=== PATIENT | female | born 1990 | race Caucasian/White ===

== ENCOUNTER 2018-11-25 10:34 | Emergency (ER) | payer SELFPAY ==
[~2018-11-25] VITALS: Ht 149.9 cm; Wt 39.5 kg
[2018-11-25 10:37] VITALS: BP 115/68
--- NOTE | 2018-11-25 10:45 | NUR ---
LESLEY MCARTHUR 89 Back Pain/Psych "Bystander called she was sleeping in a gutter near intersection. C/o Back pain has some behavioral issues" Patient placed on a monitor. Kept comfortable.
[2018-11-25] MEDS ORDERED: ACETAMINOPHEN ES 500 MG TABLET ONE (10:52)
[2018-11-25] MEDS ORDERED: ACETAMINOPHEN ES 500 MG TABLET PO ONE (11:00)
--- NOTE | 2018-11-25 11:08 | NUR ---
PATIENT REFUSED TO GIVE URINE SAMPLE, CUP PROVIDED, BUT PATIENT USED THE RESTROOM AND THREW AWAY THE CUP WITHOUT A SAMPLE. DR. OTERO MADE AWARE. BUSINESS OWNER/ENGINEER CALLED FOR CONSULT.
--- NOTE | 2018-11-25 11:30 | NUR ---
PATIENT SEEN BY SORTING GRAPPLE OPERATOR BYRON, AND RESOURCES PROVIDED. PATIENT PROVIDED FOOD AND TAP CARD.
--- NOTE | 2018-11-25 11:30 | NUR ---
CHANDNI received a call from pt's RN Farhat regarding social service consult for the pt. Pt. is a 28year old male who was brought to [facility] by ambulance for low back pain and wanting some food. CHANDNI met with pt. bedside. Pt. is alert and oriented x 4. Pt's hair appears disheveled. Pt. states she moved to [facility] from [place] three weeks ago. CHANDNI asked pt. if she is homeless, pt. stated, "no." However, pt. was found asleep in a gutter on the streets. Pt's mood and affect are normal. Pt. does mumble to herself at times, however is able to answer questions appropriately that are asked of her. Pt. currently denies any visual or auditory hallucinations and suicidal or homicidal ideations. Pt. states she had depression and anxiety and take Xanax. CHANDNI asked pt. if she wants any group home placement, pt. declined and stated, " I am going to [facility]" and laughed. Pt. was drawing in her book while talking with CHANDNI. Pt. states she is planning to go to [place]. CHANDNI gave pt. the following homeless resources: [facility] group home located at [address] [address]. ; [facility] [place], [address] [facility]. [facility] ; [facility] [place], [address] [facility] [address] ; [facility] Homeless Resource Directory which includes food stamps, transitional housing, showers and hot meals etc; Mental Health clinics such as [facility] ; [facility] ; Health clinics;[facility] and Alcohol treatment centers such as [facility], ; [facility] Substance Abuse Hotline and [facility] . Pt. was offered lunch and a TAP CARD. Homeless Patient Waiver Form was signed by the pt. and placed in pt's chart. CHANDNI updated Dr. Wyatt regarding pt's discharge plan
--- NOTE | 2018-11-25 11:54 | NUR ---
Patient discharged to preferred destination in stable condition. Written and verbal after care instructions given. Patient verbalizes understanding of instruction.
== END 2018-11-25 12:30 | disposition home or self-care (01) ==
LOC: ER 10:39
DX: F29 Unspecified psychosis not due to a substance or known physiological condition (principal); Z59.0 Homelessness; Z76.5 Malingerer [conscious simulation]